=== PATIENT | female | born 1955 | race Caucasian/White ===

== ENCOUNTER 2019-01-13 07:32 | Day surgery (SDC) | payer MEDICARE ==
[~2019-01-13] VITALS: Ht 160 cm; Wt 60.9 kg
[2019-01-13] VITALS (13 sets, daily range): BP systolic 106–145; BP diastolic 60–82
[~2019-01-13 07:32] MED LIST: ceFAZolin 2gm in dextrose, iso 100 ML IV ONE; famotidine 20mg tablet PO ONE; ringers solution, lacted 1,000 ML IV SCH
[2019-01-13] MEDS ORDERED: DIPH25CA83 PO (08:02)
[2019-01-13 09:16] LABS: BASOPHILS % (AUTO) 0.3 % (0-1); EOSINOPHILS # (AUTO) 0.1 X10'3 (0-0.9); EOSINOPHILS % (AUTO) 0.7 % (0-6); HEMATOCRIT 41.2 % (35.0-45.0); HEMOGLOBIN 14.4 g/dl (12.0-16.0); LYMPHOCYTES # (AUTO) 2.4 X10'3 (1.1-4.8); LYMPHOCYTES % (AUTO) 27.6 % (21-51); MEAN CORPUSCULAR HEMOGLOBIN 34.5 PG (27.0-31.0); MEAN CORPUSCULAR HGB CONC 34.9 g/dL (33.0-36.5); MEAN PLATELET VOLUME 8.3 FL (7.4-10.4); MONOCYTES # (AUTO) 0.9 X10'3 (0-0.9); MONOCYTES % (AUTO) 10.2 % (2-12); NEUTROPHILS # (AUTO) 5.2 X10'3 (1.8-7.7); NEUTROPHILS % (AUTO) 61.2 % (42-75); PLATELET COUNT 231 X10'3 (140-440); RED BLOOD COUNT 4.16 X10'6 (4.20-5.60); RED CELL DISTRIBUTION WIDTH 12.1 % (11.5-14.5); WHITE BLOOD COUNT 8.5 X10'3 (4.5-11.0)
[2019-01-13 09:28] LABS: ALANINE AMINOTRANSFERASE 28 U/L (12-78); ALBUMIN/GLOBULIN RATIO 1.3 (1.1-1.5); ALKALINE PHOSPHATASE 60 IU/L (46-116); ANION GAP 8 (8-16); ASPARTATE AMINO TRANSFERASE 24 U/L (10-37); BILIRUBIN,TOTAL 0.5 MG/DL (0.1-1.0); BLOOD UREA NITROGEN 11 MG/DL (7-18); BUN/CREATININE RATIO 17.5 (6.6-38.0); CALCIUM 9.5 MG/DL (8.5-10.1); CHLORIDE 102 MMOL/L (99-107); CREATININE 0.63 MG/DL (0.40-0.90); GLUCOSE 99 MG/DL (70-104); SODIUM 137 MMOL/L (135-145); TOTAL CARBON DIOXIDE 27.3 MMOL/L (24-32); eGFR > 90 ML/MIN
[2019-01-13] MEDS ORDERED: epiNEPHrine 1 mg/ml inj ONE (09:52)
[2019-01-13] MEDS ORDERED: BUPIVAcaine/PF 2.5mg/ml (0.25%) 10ml vial ONE (09:52)
[2019-01-13] MEDS ORDERED: ceFAZolin 1000mg inj ONE (09:52)
[2019-01-13] MEDS ORDERED: acetaminophen 1,000mg/100ml IV 100 ML IV ONE (10:04)
[2019-01-13] MEDS ORDERED: ringers solution, lacted 1,000 ML IV SCH (10:07)
[2019-01-13] MEDS ORDERED: morphine 4 MG/ML inj SYRINge IV PRN ×2 (10:10)
[2019-01-13] MEDS ORDERED: meperidine/PF 25mg/ml syringe IV PRN ×3 (10:10)
[2019-01-13] MEDS ORDERED: proCHLORperazine 10 MG/2 ml inj IV PRN (10:10)
[2019-01-13] MEDS ORDERED: ondansetron/PF 4mg/2ml inj IV PRN (10:10)
[2019-01-13] MEDS ORDERED: propofol 10mg/ml 20ml vial IV ONE (10:13)
[2019-01-13] MEDS ORDERED: fentaNYL/PF 50MCG/1 ML 2ML syringe ONE (10:19)
[2019-01-13] MEDS ORDERED: midazolam 2 mg/2 ml injection ONE (10:19)
[2019-01-13] MEDS ORDERED: propofol inj 20 ML IV ONE (10:21)
[2019-01-13] MEDS ORDERED: dexamethasone sod phosphate 4mg/ml inj. ONE (11:18)
[2019-01-13] MEDS ORDERED: ondansetron/PF 4mg/2ml inj ONE (11:18)
[2019-01-13] MEDS ORDERED: rocuronium 10mg/ml inj IV ONE (11:18)
[2019-01-13] MEDS ORDERED: glycopyrrolate 0.2mg/ml inj ONE (11:21)
[2019-01-13] MEDS ORDERED: neostigmine methylsulfate 1 MG/ML 10ml vial ONE (11:21)
--- NOTE | 2019-01-13 11:34 | NUR ---
Received from OR via [facility] , accompanied by Anesthesiologist CHRIS and report given by Anesthesiolgist. PATIENT WITH 2 BANDAIDS TO ABDOMEN, DRESSINGS CDI. DENIES PAIN UPON ARRIVAL. VSS. 20G IN RIGHT UE RUNNING LR AT 100. Addendum: 01/13/19 at 1150 by Clark Wiseman RN, RN Amended: Links added.
--- NOTE | 2019-01-13 12:34 | NUR ---
Report called to receiving nurse. Transferred via GURNEY WITH 2 BAGS OF Belongings TO PAS UNIT. Special Issues communicated to receiving nurse TD FRENCH. JAMIL. Addendum: 01/13/19 at 1241 by Clark Wiseman RN, RN Amended: Links added.
--- NOTE | 2019-01-13 12:35 | NUR ---
ASSUMED CARE OF PT. RECEIVED PT. FROM PACU, REPORT FROM MANOLO REDDY. PT. A X O X 4. APPROP. RESPS. EVEN & UNLABORED. VOICE CLEAR. ABD. SOFT, ABD. BANDAIDS X 2 DRY & INTACT. RT. ARM IV PATENT. PT. STATES PAIN 03/22. REASSURED. TAKING WATER & JUICE WITHOUT UPSET.
--- NOTE | 2019-01-13 14:00 | NUR ---
UP, AMBULATED IN [place], @ BEDSIDE. STEADY GAIT. ATTEMPTED TO VOID, UNABLE AT THIS TIME. REASSURED.
--- NOTE | 2019-01-13 15:00 | NUR ---
TAKING PO FLUIDS READILY. AMBULATED W/ . UNABLE TO VOID @ THIS TIME, STATES " ALMOST" . BLADDER SCAN SHOWS 240MLS. REASSURED.
--- NOTE | 2019-01-13 15:45 | NUR ---
UP TO BR, VOIDED [address] CL. YELLOW URINE. READIED FOR DISCHARGE. UP & DRESSED W/ MINIMAL ASSIST. STEADY ON FEET. DENIES NAUSEA, WEAKNESS, DIZZINESS. ABD. SOFT, ABD. BANDAIDS DRY & INTACT. IV DC'D CANNULA INTACT. ACI'S REVIEWED W/ PT & , UNDERSTANDING OF SAME.
--- NOTE | 2019-01-13 16:00 | NUR ---
TO AUTO VIA WHEELCHAIR. TO DRIVE. OFFERS NO CONCERNS @ THIS TIME. PAIN 02/19.
== END 2019-01-13 16:00 | disposition home or self-care (01) ==
LOC: PAS 07:32
PROVIDERS: ATTEND Surgery
DX: K40.00 Bilateral inguinal hernia, with obstruction, without gangrene, not specified as recurrent (principal); F17.210 Nicotine dependence, cigarettes, uncomplicated; I10 Essential (primary) hypertension; E78.5 Hyperlipidemia, unspecified; Z90.710 Acquired absence of both cervix and uterus; Z98.890 Other specified postprocedural states; Z72.89 Other problems related to lifestyle
CPT/HCPCS: 36415; 49650; 80053; 82948; 85025; 93005; A6258; C1781; J0131; J0171; J0690; J1100; J2175; J2250; J2405; J2704; J2710; J3010; J3490; A4315; J7120